=== PATIENT | male | born 1980 | race Caucasian/White ===

== ENCOUNTER 2016-03-16 14:47 | Emergency (ER) | payer OTHER ==
[~2016-03-16] VITALS: Ht 172.7 cm; Wt 69.9 kg
[~2016-03-16 14:47] MED LIST: BACTRIM,SEPT1 TABLET PO; BENADRYL25 MG PO; CITALOPRAM HBR20 MG PO; CLARITIN,ALAVAR10 MG PO; CLONAZEPAM0.5 MG PO; COGENTIN0.5 MG PO; COLACE100 MG PO; DESYREL100 MG PO; DIPHENHIST25 M2 PO; DIPHENHYDRAMINE50 M1 PO; FLOMAX0.4 MG PO; HALDOL5 MG PO; HALOPERIDOL5 MG PO; HYDROCODON-ACE1 EAC7 PO; IBUPROFEN400 MG PO; KEFLEX500 MG PO; KLONOPIN0.5 M1 PO; MELOXICAM15 MG PO; MOTRIN400 MG PO; MOTRIN800 MG PO; NAPROXEN500 M2 PO; NOHOMEMEDS; PEPCID20 MG PO; PEPCID40 MG PO; PERCOCET 5/31 TABLET PO; PERPHENAZINE4 MG PO; PERPHENAZINE8 MG PO; QUETIAPINE FUM200 MG PO; SEROQUEL100 MG PO; SEROQUEL200 MG PO; SEROQUEL300 MG PO; SEROQUEL50 MG PO; TRAMADOL HCL50 MG PO; TRAZODONE HCL100 MG PO; TRAZODONE HCL50 MG PO; TRIANEX17 GM TP; TRILAFON4 MG PO; ZOFRAN ODT4 MG PO; ZOFRAN4 MG PO
[2016-03-16 14:51] VITALS: BP 126/87
== END 2016-03-16 15:17 | disposition left against medical advice (07) ==
LOC: EME 14:47
DX: R10.9 Unspecified abdominal pain (principal); R36.9 Urethral discharge, unspecified; R22.0 Localized swelling, mass and lump, head; R50.9 Fever, unspecified; Z53.21 Procedure and treatment not carried out due to patient leaving prior to being seen by health care provider

== ENCOUNTER → 2016-04-09 | Emergency (ER) | payer OTHER ==
[~2016-04-09] VITALS: Ht 172.7 cm; Wt 69.6 kg
[~2016-04-09] MED LIST changes: +NAPROSYN500 MG PO
[2016-04-09 19:08] VITALS: BP 147/78
== END | disposition home or self-care (01) ==
LOC: EME 15:05
PROC: 3E0234Z Introduction of Serum, Toxoid and Vaccine into Muscle, Percutaneous Approach (ICD-10-PCS; principal; 2016-04-09)
DX: S50.02XA Contusion of left elbow, initial encounter (principal); S50.812A Abrasion of left forearm, initial encounter; Y00.XXXA Assault by blunt object, initial encounter; Z23 Encounter for immunization
CPT/HCPCS: 73080; 73110; 99281; 99284

== ENCOUNTER 2016-07-03 15:18 | Emergency (ER) | payer OTHER ==
[~2016-07-03] VITALS: Ht 172.7 cm; Wt 67.0 kg
[2016-07-03 17:12] LABS: ADD MIUA? YES; BILIRUBIN NEGATIVE; BLOOD NEGATIVE; COLOR YELLOW ((YELLOW)); GLUCOSE (STRIP) NEGATIVE; KETONES 20; LEUKOCYTES NEGATIVE; NITRITE NEGATIVE; PROTEIN (STRIP) NEGATIVE; SPECIFIC GRAVITY 1.024 (1.000-1.030); UROBILINOGEN 0.2 MG/DL (0.2-1.0)
[2016-07-03 17:24] LABS: HEMATOCRIT 36.6 % (38.0-50.0); MCHC 33.9 G/DL (30.0-36.0); MCV 85.7 FL (86-99); PLATELET COUNT 221 K/uL (156-360); RBC DIS.WIDTH-CV 11.6 % (11.8-14.6); RBC DIS.WIDTH-SD 35.9 % (39-53); RED BLOOD COUNT 4.27 M/uL (4.00-5.50); WHITE BLOOD COUNT 5.9 K/uL (4.1-10.2)
[2016-07-03 17:38] LABS: CHLORIDE 105 mEq/L (99-109); SODIUM 141 mEq/L (136-147)
[2016-07-03 17:40] LABS: GLUCOSE 182 mg/dL (70-99)
[2016-07-03 17:41] LABS: ANION GAP 12 MEQ/L (2-14)
[2016-07-03 17:44] LABS: GFR ESTIMATE (CALCULATED) > 59 mL/min/
[2016-07-03 17:45] LABS: UREA NITROGEN (BUN) 23 mg/dL (9-23)
[2016-07-03 17:53] LABS: BACTERIA RARE /HPF; CALCIUM OXALATE CRYSTALS 4+ /HPF; EPITHELIAL CELLS RARE /HPF; MUCUS TRACE /LPF; RED BLOOD CELLS 0-5 /HPF (0-5); WHITE BLOOD CELLS 0-5 /HPF (0-5)
[2016-07-03] MEDS ORDERED: ZOFRAN ODT4 MG PO (18:18)
[2016-07-03] MEDS ORDERED: INDOCIN50 MG PO (18:18)
[2016-07-03] MEDS ORDERED: FLOMAX0.4 MG PO (18:26)
[2016-07-03 18:32] VITALS: BP 118/82
== END 2016-07-03 18:33 | disposition home or self-care (01) ==
LOC: EME 15:18
PROVIDERS: Physician Assistant
DX: N20.0 Calculus of kidney (principal); E11.9 Type 2 diabetes mellitus without complications; I10 Essential (primary) hypertension; Z87.442 Personal history of urinary calculi; F17.200 Nicotine dependence, unspecified, uncomplicated
CPT/HCPCS: 74000; 80048; 81003; 85027; 99281; 99284

== ENCOUNTER 2016-07-16 00:43 | Emergency (ER) | payer OTHER ==
[~2016-07-16] VITALS: Ht 175.3 cm; Wt 70.0 kg
[~2016-07-16 00:43] MED LIST changes: +INDOCIN50 MG PO
[2016-07-16 04:38] VITALS: BP 132/71
== END 2016-07-16 04:41 | disposition home or self-care (01) ==
LOC: EME 00:43
DX: S00.83XA Contusion of other part of head, initial encounter (principal); Y09 Assault by unspecified means; E11.9 Type 2 diabetes mellitus without complications; I10 Essential (primary) hypertension; Z87.442 Personal history of urinary calculi; F17.200 Nicotine dependence, unspecified, uncomplicated
CPT/HCPCS: 70450; 70486; 99281; 99283

== ENCOUNTER 2016-07-30 19:07 | Emergency (ER) | payer OTHER ==
[~2016-07-30] VITALS: Ht 175.3 cm; Wt 67.0 kg
[2016-07-30 20:01] LABS: ADD MIUA? NO; BILIRUBIN NEGATIVE; BLOOD NEGATIVE; COLOR YELLOW ((YELLOW)); GLUCOSE (STRIP) >=500; KETONES 5; LEUKOCYTES NEGATIVE; NITRITE NEGATIVE; PROTEIN (STRIP) 30; SPECIFIC GRAVITY 1.033 (1.000-1.030); UCUL ADDED? NO; UROBILINOGEN 0.2 MG/DL (0.2-1.0)
[2016-07-30 20:06] LABS: HEMATOCRIT 40.9 % (38.0-50.0); MCH 29.5 PG (29.0-34.0); MCHC 33.7 G/DL (30.0-36.0); MCV 87.4 FL (86-99); MEAN PLAT.VOLUME 10.4 uM^3 (9.0-12.4); PLATELET COUNT 259 K/uL (156-360); RBC DIS.WIDTH-CV 11.8 % (11.8-14.6); RBC DIS.WIDTH-SD 37.8 % (39-53); RED BLOOD COUNT 4.68 M/uL (4.00-5.50); WHITE BLOOD COUNT 5.1 K/uL (4.1-10.2)
[2016-07-30 20:17] LABS: CHLORIDE 102 mEq/L (99-109); POTASSIUM 4.1 mEq/L (3.7-5.4); SODIUM 141 mEq/L (136-147)
[2016-07-30 20:18] LABS: GLUCOSE 89 mg/dL (70-99)
[2016-07-30 20:19] LABS: ANION GAP 14 MEQ/L (2-14)
[2016-07-30 20:20] LABS: TOTAL BILIRUBIN 0.5 mg/dL (0.0-1.0)
[2016-07-30 20:22] LABS: ALKALINE PHOSPHATASE 67 IU/L (3-129); GFR ESTIMATE (CALCULATED) > 59 mL/min/
[2016-07-30 20:23] LABS: UREA NITROGEN (BUN) 17 mg/dL (9-23)
[2016-07-31] MEDS ORDERED: LIDODERM 5% P1 PATCH TD (02:14)
[2016-07-31] MEDS ORDERED: NAPROSYN500 MG PO (02:14)
[2016-07-31] MEDS ORDERED: MEDROL DOSEPAK4 MG PO (02:14)
[2016-07-31 02:18] LABS: LIPASE 118 U/L (1.0-51.0)
[2016-07-31 02:40] VITALS: BP 127/97
== END 2016-07-31 02:41 | disposition home or self-care (01) ==
LOC: EME 19:07 → EXP 19:07
PROC: 3E0234Z Introduction of Serum, Toxoid and Vaccine into Muscle, Percutaneous Approach (ICD-10-PCS; principal; 2016-07-30)
DX: R10.9 Unspecified abdominal pain (principal); S31.135A Puncture wound of abdominal wall without foreign body, periumbilic region without penetration into peritoneal cavity, initial encounter; W45.8XXA Other foreign body or object entering through skin, initial encounter; M47.897 Other spondylosis, lumbosacral region; Z23 Encounter for immunization; R82.99 Other abnormal findings in urine; M51.26 Other intervertebral disc displacement, lumbar region; M51.37 Other intervertebral disc degeneration, lumbosacral region; Z87.442 Personal history of urinary calculi; Z72.0 Tobacco use
CPT/HCPCS: 74176; 80053; 81003; 83690; 85027; 99281; 99284

== ENCOUNTER 2016-11-10 17:39 | Emergency (ER) | payer OTHER ==
[~2016-11-10] VITALS: Ht 172.7 cm; Wt 68.9 kg
[~2016-11-10 17:39] MED LIST changes: +LIDODERM 5% P1 PATCH TD; +MEDROL DOSEPAK4 MG PO
[2016-11-10 18:37] LABS: HEMATOCRIT 36.7 % (38.0-50.0); MCH 29.2 PG (29.0-34.0); MCHC 33.8 G/DL (30.0-36.0); MCV 86.6 FL (86-99); MEAN PLAT.VOLUME 10.7 uM^3 (9.0-12.4); PLATELET COUNT 189 K/uL (156-360); RBC DIS.WIDTH-CV 11.4 % (11.8-14.6); RBC DIS.WIDTH-SD 36.3 % (39-53); RED BLOOD COUNT 4.24 M/uL (4.00-5.50); WHITE BLOOD COUNT 4.1 K/uL (4.1-10.2)
[2016-11-10 18:50] LABS: CHLORIDE 102 mEq/L (99-109); POTASSIUM 4.1 mEq/L (3.7-5.4); SODIUM 140 mEq/L (136-147)
[2016-11-10 18:51] LABS: ADD MIUA? NO; BILIRUBIN NEGATIVE; BLOOD NEGATIVE; COLOR YELLOW ((YELLOW)); GLUCOSE (STRIP) NEGATIVE; KETONES NEGATIVE; LEUKOCYTES NEGATIVE; NITRITE NEGATIVE; PROTEIN (STRIP) NEGATIVE; SPECIFIC GRAVITY 1.015 (1.000-1.030)
[2016-11-10 18:52] LABS: GLUCOSE 120 mg/dL (70-99)
[2016-11-10 18:54] LABS: ANION GAP 12 MEQ/L (2-14)
[2016-11-10 18:56] LABS: GFR ESTIMATE (CALCULATED) > 59 mL/min/
[2016-11-10 18:57] LABS: UREA NITROGEN (BUN) 12 mg/dL (9-23)
[2016-11-10 19:40] LABS: UCUL ADDED? NO
[2016-11-10 20:29] VITALS: BP 135/79
== END 2016-11-10 20:31 | disposition left against medical advice (07) ==
LOC: EME 17:39
PROVIDERS: Physician Assistant
DX: N20.0 Calculus of kidney (principal); E11.9 Type 2 diabetes mellitus without complications; I10 Essential (primary) hypertension; Z87.442 Personal history of urinary calculi; F17.200 Nicotine dependence, unspecified, uncomplicated
CPT/HCPCS: 74176; 80048; 81003; 85027; 99281; 99283; J1885

== ENCOUNTER 2016-11-21 16:54 | Emergency (ER) | payer OTHER ==
[~2016-11-21] VITALS: Ht 175.3 cm; Wt 67.1 kg
[2016-11-21 17:19] VITALS: BP 121/93
[2016-11-21 17:45] LABS: ADD MIUA? NO; BILIRUBIN NEGATIVE; BLOOD NEGATIVE; COLOR COLORLESS ((YELLOW)); GLUCOSE (STRIP) NEGATIVE; KETONES NEGATIVE; LEUKOCYTES NEGATIVE; NITRITE NEGATIVE; PROTEIN (STRIP) NEGATIVE; SPECIFIC GRAVITY 1.002 (1.000-1.030); UCUL ADDED? NO; UROBILINOGEN 0.2 MG/DL (0.2-1.0)
== END 2016-11-21 19:00 | disposition left against medical advice (07) ==
LOC: EME 16:54
DX: N23 Unspecified renal colic (principal); Z53.21 Procedure and treatment not carried out due to patient leaving prior to being seen by health care provider
CPT/HCPCS: 80048; 81003; 85027

== ENCOUNTER 2017-02-21 17:55 | Emergency (ER) | payer OTHER ==
[~2017-02-21] VITALS: Ht 175.3 cm; Wt 65.0 kg
[2017-02-21 18:53] LABS: HEMATOCRIT 39.8 % (38.0-50.0); HEMOGLOBIN 13.7 G/DL (12.5-16.6); MCH 30.2 PG (29.0-34.0); MCHC 34.4 G/DL (30.0-36.0); MCV 87.7 FL (86-99); PLATELET COUNT 237 K/uL (156-360); RBC DIS.WIDTH-CV 11.7 % (11.8-14.6); RBC DIS.WIDTH-SD 37.6 % (39-53); RED BLOOD COUNT 4.54 M/uL (4.00-5.50)
[2017-02-21 18:56] LABS: ALBUMIN 4.5 g/dL (3.2-4.8); CHLORIDE 102 mEq/L (99-109); POTASSIUM 3.8 mEq/L (3.7-5.4); SODIUM 137 mEq/L (136-147)
[2017-02-21 18:58] LABS: GLUCOSE 209 mg/dL (70-99); TOTAL PROTEIN 7.3 g/dL (6.4-8.3)
[2017-02-21 19:00] LABS: TOTAL BILIRUBIN 0.4 mg/dL (0.0-1.0)
[2017-02-21 19:01] LABS: SERUM ETHYL ALCOHOL < 10 mg/dL
[2017-02-21 19:02] LABS: ALKALINE PHOSPHATASE 70 IU/L (3-129); GFR ESTIMATE (CALCULATED) > 59 mL/min/ (58.99-99999)
[2017-02-21 19:03] LABS: AST (GOT) 20 IU/L (2-34); UREA NITROGEN (BUN) 13 mg/dL (9-23)
[2017-02-21 19:05] LABS: ALT (GPT) 27 IU/L (3-49)
[2017-02-21 19:50] LABS: AMPHETAMINE NEGATIVE (500 ng/mL); BARBITURATES NEGATIVE (200 ng/mL); BENZODIAZEPINES NEGATIVE (150 ng/mL); BUPRENORPHINE NEGATIVE (10 ng/mL); COCAINE NEGATIVE (150 ng/mL); METHADONE NEGATIVE (200 ng/mL); METHAMPHETAMINE NEGATIVE (500 ng/mL); OPIATES (MORPHINE) NEGATIVE (100 ng/mL); OXYCODONE NEGATIVE (100 ng/mL); PHENCYCLIDINE NEGATIVE (25 ng/mL); PROPOXYPHENE NEGATIVE (300 ng/mL); THC CANNABINOIDS NEGATIVE (50 ng/mL); TRICYCLIC ANTIDEPRESSANTS NEGATIVE (300 ng/mL)
[2017-02-21 20:37] VITALS: BP 153/105
== END 2017-02-21 21:12 ==
LOC: EME 17:55
PROVIDERS: Emergency Medicine
DX: S20.351A Superficial foreign body of right front wall of thorax, initial encounter (principal); Y35.403A Legal intervention involving unspecified sharp objects, suspect injured, initial encounter; Y92.481 Parking lot as the place of occurrence of the external cause; Z02.89 Encounter for other administrative examinations; F20.9 Schizophrenia, unspecified; T50.996A Underdosing of other drugs, medicaments and biological substances, initial encounter; Z91.128 Patient's intentional underdosing of medication regimen for other reason; F32.9 Major depressive disorder, single episode, unspecified; F95.2 Tourette's disorder; F17.200 Nicotine dependence, unspecified, uncomplicated
CPT/HCPCS: 80053; 85027; 90839; 99281; 99284; G0480